=== PATIENT | male | born 1990 | race Hispanic/Latino ===

== ENCOUNTER 2016-09-10 00:11 | Emergency (ER) | payer OTHER ==
--- NOTE | 2016-09-10 00:14 | ED PDOC ---
HPI: CCC, URI, Sore Throat Time Seen by Provider: 09/10/16 00:14 Chief Complaint (Provider): ear pain History Per: Patient Additional Complaint(s): 26-year-old male presents with hearing loss and slight pain to his right ear that started about one hour prior to arrival. Patient was using a Q-tip when hearing became acutely muffled. He denies any dizziness or headache, no active drainage or bleeding. Left ear unaffected. Past Medical History Reviewed: Historical Data, Nursing Documentation, Vital Signs Vital Signs: Last Vital Signs Temp 98.1 F 09/10/16 00:23 Pulse 80 09/10/16 00:23 Resp 15 09/10/16 00:23 BP 115/61 09/10/16 00:23 Pulse Ox 98 09/10/16 00:23 - Medical History PMH: No Chronic Diseases - Surgical History Surgical History: No Surg Hx - Family History Family History: States: No Known Family Hx - Living Arrangements Living Arrangements: With Family - Social History Current smoker - smoking cessation education provided: No Alcohol: Social Drugs: Cannabis - Allergies Allergies/Adverse Reactions: Allergies Allergy/AdvReac Type Severity Reaction Status Date / Time No Known Allergies Allergy Verified 09/10/16 00:31 Review of Systems ROS Statement: Except As Marked, All Systems Reviewed And Found Negative Constitutional: Negative for: Fever ENT: Positive for: Ear Pain (right ear pain and hearing loss) Respiratory: Negative for: Cough Gastrointestinal: Negative for: Nausea, Vomiting Neurological: Negative for: Headache, Dizziness Physical Exam - Reviewed Nursing Documentation Reviewed: Yes Vital Signs Reviewed: Yes - Physical Exam Appears: Positive for: Well, Non-toxic, No Acute Distress Eye Exam: Positive for: Normal appearance, EOMI, PERRL ENT: Positive for: Other (Left ear within normal limits, right ear demonstrates cerumen impaction, no active bleeding or drainage) Neurologic/Psych: Positive for: Alert, Oriented - ECG O2 Sat by Pulse Oximetry: 98 Pulse Ox Interpretation: Normal Medical Decision Making Medical Decision Making: Impression: cerumen impaction Plan: Debrox ear drops ordered from pharmacy Patient was instructed to apply drops and flush ear canal out to remove wax. He was referred to ENT bone worker for follow up. Disposition - Clinical Impression Clinical Impression: Cerumen impaction - Patient ED Disposition Is Patient to be Admitted: No Counseled Patient/Family Regarding: Diagnosis, Need For Followup - Disposition Referrals: Georges Benavides MD [Staff Provider] - Disposition: Routine/Home Disposition Time: 00:55 Condition: STABLE Additional Instructions: Apply 2 drops to affected ear twice per day for 3 days then flush ear canal out with saline and peroxide mix. If symptoms persist, follow up with ear, nose and throat specialist. Avoid further use of q-tips as prevention. Instructions: Cerumen Impaction (ED)
[2016-09-10] MEDS ORDERED: Carbamide Peroxide OTIC SOLUTION AU STA (00:48)
[2016-09-10 01:01] VITALS: BP 115/61; PULSE 80; RESP 15; TEMP 98.1; O2SAT 98
== END 2016-09-10 01:13 | disposition home or self-care (01) ==
LOC: H.ER 00:11
DX: H61.21 Impacted cerumen, right ear (principal)